=== PATIENT | male | born 1975 | race Caucasian/White ===

== ENCOUNTER 2020-09-03 10:35 | Emergency (ER) | payer BC, OTHER ==
[2020-09-03 10:40] VITALS: BP 135/84; PULSE 72; TEMP 98.9; BMI 27.8
[2020-09-03] MEDS ORDERED: DOXYCYCLINE HYCLATE 100 MG CAPSULE PO ONE (11:07)
[2020-09-03] MEDS ORDERED: DOXYCYCLINE HYCLATE 100 MG TABLET PO ONE (11:09)
== END 2020-09-03 11:15 | disposition home or self-care (01) ==
LOC: FER 10:35
DX: S20.369A Insect bite (nonvenomous) of unspecified front wall of thorax, initial encounter (principal)
CPT/HCPCS: 99283-25